=== PATIENT | female | born 1940 | race Caucasian/White ===

== ENCOUNTER 2019-02-12 14:27 | Emergency (ER) | payer MEDICARE, BC ==
[2019-02-12 14:39] VITALS: BP 125/55
--- NOTE | 2019-02-12 14:52 | UC ---
Ear Complaint HPI - HPI Summary HPI Summary: 79-year-old woman comes in with chief complaint of right ear pain. The gone last couple of days. She has been swimming. Patient has hearing aids. She reports that she gets this every year and her ear doctor gives her antibiotics and she gets better. Some rhinorrhea. No fever. - History of Current Complaint Chief Complaint: UCEar Stated Complaint: RT EAR CONCERN Time Seen by Provider: 02/12/19 14:35 Pain Intensity: 10 - Allergies/Home Medications Allergies/Adverse Reactions: Allergies Allergy/AdvReac Type Severity Reaction Status Date / Time latex Allergy Hives Verified 02/12/19 14:39 Penicillins Allergy Hives Verified 02/12/19 14:39 Home Medications: Home Medications Atorvastatin* [Lipitor*] 10 mg PO DAILY 02/12/19 [History Confirmed 02/12/19] Dipyridamole/Aspirin 25/200* [Aggrenox 25/200*] 1 cap BID 02/12/19 [History Confirmed 02/12/19] metFORMIN* [Glucophage 500 MG TAB *] 500 mg PO BID 02/12/19 [History Confirmed 02/12/19] PMH/Surg Hx/FS Hx/Imm Hx Previously Healthy: Yes Endocrine History: Diabetes, Dyslipidemia - Surgical History Surgical History: None - Family History Known Family History: Positive: Non-Contributory - Social History Alcohol Use: Occasionally Substance Use Type: None Smoking Status (MU): Heavy Every Day Tobacco Smoker Review of Systems All Other Systems Reviewed And Are Negative: Yes Constitutional: Positive: Negative Skin: Positive: Negative Eyes: Positive: Negative ENT: Positive: Ear Ache, Nasal Discharge Respiratory: Positive: Negative Cardiovascular: Positive: Negative Gastrointestinal: Positive: Negative Motor: Positive: Negative Neurovascular: Positive: Negative Musculoskeletal: Positive: Negative Neurological: Positive: Negative Psychological: Positive: Negative Is Patient Immunocompromised?: No Physical Exam Triage Information Reviewed: Yes Appearance: Well-Appearing, No Pain Distress, Well-Nourished Vital Signs: Initial Vital Signs Temp 97.3 F 02/12/19 14:35 Pulse 88 02/12/19 14:35 Resp 16 02/12/19 14:35 BP 125/55 02/12/19 14:35 Pulse Ox 96 02/12/19 14:35 Vital Signs Reviewed: Yes Eye Exam: Normal Eyes: Positive: Conjunctiva Clear ENT: Positive: Other - There is some tenderness to palpation of the right tragus. The right TM does not appear to have any pus behind it. It is not erythematous. Neck: Positive: Supple Respiratory: Positive: Lungs clear, Normal breath sounds, No respiratory distress Cardiovascular: Positive: RRR Musculoskeletal: Positive: Strength Intact, ROM Intact Neurological: Positive: Alert Psychological: Positive: Age Appropriate Behavior Skin Exam: Normal Ear Complaint Course/Dx - Course Course Of Treatment: On examination appears that the patient has some debris in the ear canal in because she's been swimming and this could be an otitis externa. However if she has minimal tenderness with palpation of the tragus. Also the pain is somewhat intermittent. Patient reports that her ear doctor treats with antibiotics and she can't remember if it's drops or pills each ear and then the pain goes away. Therefore we will treat with both by mouth and topical antibiotics. Patient's to follow-up with her ear doctor get reevaluated sooner if worse or any questions or concerns. - Differential Dx/Diagnosis Provider Diagnosis: Right ear pain Discharge - Sign-Out/Discharge Documenting (check all that apply): Patient Departure All imaging exams completed and their final reports reviewed: No Studies - Discharge Plan Condition: Stable Disposition: HOME Prescriptions: DOXYcycline CAP(*) [DOXYcycline 100MG CAP(*)] 100 mg PO BID #20 cap Ofloxacin 0.3% (Ear Drop)* [Floxin 0.3% OTIC.EVELINA (Ear Drop)] 5 drop RIGHT EAR BID #1 btl Patient Education Materials: Earache (ED) Referrals: Rodolfo Wallace NP [Primary Care Provider] - Additional Instructions: FOLLOW UP WITH YOUR DOCTOR IF NOT COMPLETELY IMPROVED. GET REEVALUATED SOONER IF WORSE OR ANY QUESTIONS OR CONCERNS. - Billing Disposition and Condition Condition: STABLE Disposition: Home
== END 2019-02-12 14:57 | disposition home or self-care (01) ==
LOC: UCCORT 14:27
DX: H92.01 Otalgia, right ear (principal); E11.9 Type 2 diabetes mellitus without complications; Z79.4 Long term (current) use of insulin; E78.5 Hyperlipidemia, unspecified; F17.200 Nicotine dependence, unspecified, uncomplicated
CPT/HCPCS: 99212; G0463